=== PATIENT | male | born 1980 | race American Indian/Alaskan Native ===

== ENCOUNTER 2018-01-29 08:22 | Emergency (ER) | payer OTHER ==
[2018-01-29 09:10] VITALS: BP 133/78
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
[2018-01-29] MEDS ORDERED: MOTRIN PO ONE (10:36)
== END 2018-01-29 11:03 | disposition home or self-care (01) ==
LOC: ED 08:22
DX: M54.5 Low back pain (principal); M62.830 Muscle spasm of back; V49.59XA Passenger injured in collision with other motor vehicles in traffic accident, initial encounter; Y93.89 Activity, other specified; Y92.89 Other specified places as the place of occurrence of the external cause; Y99.8 Other external cause status
CPT/HCPCS: 99282